=== PATIENT | female | born 1955 | race Caucasian/White ===

== ENCOUNTER 2022-03-21 13:36 | Emergency (ER) | payer OTHER ==
[2022-03-21 14:19] LABS: Absolute Lymphocytes (CBC) 2.6 K/uL (0.7-4.9); Hematocrit 46.5 % (36.0-45.0); MCV 95.5 fL (80-100); MPV 8.5 fL (7.6-11.3); RBC Red Blood Cell Count 4.87 M/uL (3.86-4.86)
[2022-03-21 14:37] LABS: Magnesium 2.1 mg/dL (1.8-2.4); Potassium 4.1 mmol/L (3.5-5.1)
--- NOTE | 2022-03-21 14:52 | EDPHYS ---
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 14:47 Pt reports sent here by pcp for high potassium, never had this before, no kidney rn problems, no new medication, was just labs for annual exam. . Onset: The symptoms/episode began/occurred today. Severity of symptoms: At their worst the symptoms were mild in the emergency department the symptoms are unchanged. The patient has not experienced similar symptoms in the past. The patient has been recently seen by a physician:. Historical: - Allergies: 14:00 PENICILLINS; ss - Immunization history:: Client reports receiving the 2nd dose of the Covid vaccine. - Social history:: Smoking status: Patient denies any tobacco usage or history of. - Family history:: not pertinent. - Hospitalizations: : No recent hospitalization is reported. ROS: 14:47 Constitutional: Negative for fever, chills, and weight loss, Cardiovascular: Negative rn for chest pain, palpitations, and edema, Respiratory: Negative for shortness of breath, cough, wheezing, and pleuritic chest pain, Abdomen/GI: Negative for abdominal pain, nausea, vomiting, diarrhea, and constipation, : Negative for injury, bleeding, discharge, and swelling, Neuro: Negative for headache, weakness, numbness, tingling, and seizure. Exam: 14:47 Constitutional: This is a well developed, well nourished patient who is awake, alert, rn and in no acute distress. Cardiovascular: Regular rate and rhythm. No pulse deficits. Respiratory: No increased work of breathing, no retractions or nasal flaring. Skin: Warm, dry with normal turgor. Normal color with no rashes, no lesions, and no evidence of cellulitis. MS/ Extremity: Pulses equal, no cyanosis. Neurovascular intact. Full, normal range of motion. Equal circumference. Neuro: Awake and alert, GCS 15 Vital Signs: 13:58 Pulse 87; Resp 18; Pulse Ox 98% on R/A; Weight 43.09 kg; Height 5 ft. 0 in. (152.40 ss cm); Pain 0/10; 14:14 Temp 97.8; em6 15:16 BP 154 / 90; Pulse 79; Resp 18; Pulse Ox 100% on R/A; em6 13:58 Body Mass Index 18.55 (43.09 kg, 152.40 cm) ss MDM: 13:53 Patient medically screened. rn 14:47 Differential Diagnosis wrong lab result, hyperkalemia. Data reviewed: vital signs, rn nurses notes, lab test result(s), and as a result, I will discharge patient. Counseling: I had a detailed discussion with the patient and/or guardian regarding: the historical points, exam findings, and any diagnostic results supporting the discharge/admit diagnosis, lab results, the need for outpatient follow up, to return to the emergency department if symptoms worsen or persist or if there are any questions or concerns that arise at home. Special discussion: I discussed with the patient/guardian in detail that at this point there is no indication for admission to the hospital. It is understood, however, that if the symptoms persist or worsen the patient needs to return immediately for re-evaluation. ED course: potassium normal here, will dc home with return precautions. Pt reports thinks tourniquet too tight with blood draw that showed elevated potassium. 03/21 13:53 Order name: CBC with Diff; Complete Time: 14:36 rn 03/21 13:53 Order name: Basic Metabolic Panel; Complete Time: 14:46 rn 03/21 13:53 Order name: Magnesium; Complete Time: 14:46 rn 03/21 13:53 Order name: IV Start; Complete Time: 14:07 rn Administered Medications: No medications were administered Disposition Summary: 03/21/22 14:52 Discharge Ordered Location: Home rn Problem: new rn Symptoms: are resolved rn Condition: Stable rn Diagnosis - Person with feared health complaint in whom no diagnosis is made rn Followup: rn - With: Private Physician - When: As needed - Reason: Recheck today's complaints, Re-evaluation by your physician Forms: - Medication Reconciliation Form rn - Thank You Letter rn - 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
--- NOTE | 2022-03-21 14:52 | ER ---
Nurse's Notes [facility] Name: Ana Barba Age: 67 yrs Sex: Female : 1955 Arrival Date: 03/21/2022 Time: 13:43 Bed 30 Private MD: Colt Kapoor T Diagnosis: Person with feared health complaint in whom no diagnosis is made Presentation: 03/21 13:58 Chief complaint: Patient states: "Dr. Laureano sent me here to have my labs redrawn. I ss had them drawn last week and they called saying that my potassium was high but it could have been that it was a bad draw.". Coronavirus screen: Client denies travel out of the [place] in the last 14 days. Ebola Screen: Patient denies exposure to infectious person. Patient denies travel to an Ebola-affected area in the 21 days before illness onset. Initial Sepsis Screen: Does the patient meet any 2 criteria? No. Patient's initial sepsis screen is negative. Does the patient have a suspected source of infection? No. Patient's initial sepsis screen is negative. Risk Assessment: Do you want to hurt yourself or someone else? Patient reports no desire to harm self or others. Onset of symptoms is unknown. 13:58 Method Of Arrival: Ambulatory ss 13:58 Acuity: JENNIE 3 ss Triage Assessment: 14:08 General: Appears comfortable, Behavior is cooperative. Pain: Denies pain. em6 Historical: - Allergies: 14:00 PENICILLINS; ss - Immunization history:: Client reports receiving the 2nd dose of the Covid vaccine. - Social history:: Smoking status: Patient denies any tobacco usage or history of. - Family history:: not pertinent. - Hospitalizations: : No recent hospitalization is reported. Screenin:08 Abuse screen: Denies threats or abuse. Nutritional screening: No deficits noted. em6 Tuberculosis screening: No symptoms or risk factors identified. Fall Risk IV access (20 points). Total Antoine Fall Scale indicates No Risk (0-24 pts). Assessment: 14:08 General: Appears in no apparent distress. Behavior is cooperative. Pain: Denies pain. em6 Neuro: Fernandez Agitation-Sedation Scale (RASS): 0 - Alert and Calm Level of Consciousness is awake, alert, obeys commands, Oriented to person, place, time, situation. Cardiovascular: Patient's skin is warm and dry. Respiratory: Airway is patent Respiratory effort is even, unlabored, Respiratory pattern is regular, symmetrical, Breath sounds with wheezes bilaterally. GI: No signs and/or symptoms were reported involving the gastrointestinal system. : No signs and/or symptoms were reported regarding the genitourinary system. EENT: No signs and/or symptoms were reported regarding the EENT system. Derm: No signs and/or symptoms reported regarding the dermatologic system. Musculoskeletal: Circulation, motion, and sensation intact. Range of motion: intact in all extremities. 15:07 Reassessment: Patient appears in no apparent distress at this time. No changes from em6 previously documented assessment. Patient and/or family updated on plan of care and expected duration. Pain level reassessed. Patient is alert, oriented x 3, equal unlabored respirations, skin warm/dry/pink. Vital Signs: 13:58 Pulse 87; Resp 18; Pulse Ox 98% on R/A; Weight 43.09 kg; Height 5 ft. 0 in. (152.40 ss cm); Pain 0/10; 14:14 Temp 97.8; em6 15:16 BP 154 / 90; Pulse 79; Resp 18; Pulse Ox 100% on R/A; em6 13:58 Body Mass Index 18.55 (43.09 kg, 152.40 cm) ss ED Course: 13:43 Patient arrived in ED. am2 13:43 Colt Kapoor MD is Private Physician. am2 13:53 Javier Mora MD is Attending Physician. rn 13:54 Jasmine Lopez RN is Primary Nurse. em6 14:00 Triage completed. ss 14:00 Arm band placed on right wrist. ss 14:07 Magnesium Sent. em6 14:07 Basic Metabolic Panel Sent. em6 14:07 CBC with Diff Sent. em6 14:07 Inserted saline lock: 20 gauge in left antecubital area, using aseptic technique. Blood em6 collected. 14:08 Bed in low position. Call light in reach. Side rails up X2. Pulse ox on. NIBP on. Warm em6 blanket given. 15:16 No provider procedures requiring assistance completed. IV discontinued, intact, em6 bleeding controlled, No redness/swelling at site. Pressure dressing applied. Administered Medications: No medications were administered Medication: 15:16 VIS not applicable for this client. em6 Outcome: 14:52 Discharge ordered by . rn 15:16 Discharged to home ambulatory, with significant other. em6 15:16 Condition: stable 15:16 Discharge instructions given to patient, family, Instructed on discharge instructions, follow up and referral plans. Demonstrated understanding of instructions, follow-up care. 15:20 Patient left the ED. em6 Signatures: Javier Mora MD MD rn Smirch, Shelby, RN RN ss Moreno, Amanda am2 Martinez, Erika, RN RN em6
[2022-03-21 17:01] VITALS: TEMP 97.8
[2022-03-21 17:02] VITALS: BP 154/90; O2SAT 100
== END 2022-03-21 15:20 | disposition home or self-care (01) ==
LOC: ER 13:36
DX: Z71.1 Person with feared health complaint in whom no diagnosis is made (principal)
CPT/HCPCS: 36415; 80048; 83735; 85025; 99283